=== PATIENT | female | born 1970 | race Caucasian/White ===

== ENCOUNTER 2018-07-23 08:05 | Outpatient (CLI) | payer BC ==
--- NOTE | 2018-07-23 10:22 | ULT ---
ULTRASOUND ABDOMEN: Date: 07/23/18 HISTORY: Abdominal pain and bloating. FINDINGS: There is a 1.4 x 1.5 x 1.9 cm hyperechoic area lateral to the falciform ligament in the liver. There is trace nonshadowing echogenic mobile debris in the gallbladder without gallbladder wall thickening or pericholecystic fluid. No obstructing gallstones, gallbladder thickening, or pericholecystic fluid is seen. The common duct measures 3 mm in diameter. The visualized portions of the pancreas, spleen, aorta, and IVC are unremarkable. No hydronephrosis on either side. There is a 2 cm left-sided parape lvic renal cyst. No free fluid is identified. IMPRESSION: Hyperechoic area lateral to the falciform ligament in the liver may represent focal fat or hemangioma . This should be evaluated with CT scan of the abdomen with and without IV contrast using the hemangi mio protocol. POS: [facility]
== END 2018-07-23 08:06 | disposition home or self-care (01) ==
LOC: SCSULT 08:05
PROVIDERS: ATTEND Family Medicine
DX: R10.13 Epigastric pain (principal); R14.0 Abdominal distension (gaseous); R63.4 Abnormal weight loss; R68.81 Early satiety
CPT/HCPCS: 76700